=== PATIENT | female | born 1955 | race Caucasian/White ===

== ENCOUNTER 2018-07-25 11:04 | Emergency (ER) | payer OTHER | END 2018-07-25 14:27 | disposition home or self-care (01) | LOC: JER 11:04 ==

== ENCOUNTER 2020-08-23 05:21 | Day surgery (SDC) | payer OTHER ==
[2020-08-22 10:48] VITALS: BMI 29.0
[2020-08-23] MEDS ORDERED: PROMETHAZINE HCL 25 MG/1 ML VIAL IVPUSH PRN (19:31)
[2020-08-23] MEDS ORDERED: ONDANSETRON 4 MG/2 ML VIAL IVPUSH PRN (19:31)
[2020-08-23] MEDS ORDERED: LACTATED RINGERS SOLUTION 1,000 ML IV SCH (19:45)
[2020-08-23] MEDS ORDERED: LIDOCAINE HCL/PF 2% SDV 5ML VIAL ONE (20:14)
[2020-08-23] MEDS ORDERED: PROPOFOL 20 ML ONE ×2 (20:14)
[2020-08-23] MEDS ORDERED: ceFAZolin SODIUM 1 GM VIAL IVPB ONE (20:18)
[2020-08-23] MEDS ORDERED: SODIUM CHLORIDE 0.9% P/F 10 ML VIAL IJ ONE (20:26)
[2020-08-23] MEDS ORDERED: ceFAZolin SODIUM 1 GM VIAL ONE (20:26)
[2020-08-23] MEDS ORDERED: DEXAMETHASONE SOD PHOSPHATE 4 MG/1 ML VIAL ONE (20:27)
[2020-08-23] MEDS ORDERED: KETOROLAC TROMETHAMINE 30 MG/1 ML VIAL ONE (20:27)
[2020-08-23] MEDS ORDERED: ACETAMINOPHEN 1000 MG/100 ML VIAL (NON FORMULARY) IVPB PRN (22:37)
[2020-08-24] MEDS: MORPHINE SULFATE 2 MG/ML VIAL IVPUSH PRN ×2 (00:46→06:30)
[2020-08-24 06:28] VITALS: BP 121/69; PULSE 55; TEMP 98.5
== END 2020-08-24 11:10 | disposition home or self-care (01) ==
LOC: JASU-SURG 05:21 → JERBED 22:33 → J5S 22:33 → JERBED 23:30 → JASU-SURG 23:30
PROVIDERS: ATTEND Urology
PROC: 0T7D8DZ Dilation of Urethra with Intraluminal Device, Via Natural or Artificial Opening Endoscopic (ICD-10-PCS; principal; 2020-08-23 14:45)
PROC: 0TJB8ZZ Inspection of Bladder, Via Natural or Artificial Opening Endoscopic (ICD-10-PCS; 2020-08-23 14:45)
DX: N02.9 Recurrent and persistent hematuria with unspecified morphologic changes (principal); N81.10 Cystocele, unspecified; N95.2 Postmenopausal atrophic vaginitis
CPT/HCPCS: 94760; C9803; J0131; U0003; U0005

== ENCOUNTER 2023-02-20 10:24 | Emergency (ER) | payer OTHER ==
[2023-02-20 10:34] VITALS: BMI 28.9
[2023-02-20] MEDS ORDERED: ACETAMINOPHEN 1000 MG/100 ML BAG IVPB ONE (11:22)
[2023-02-20] MEDS ORDERED: predniSONE 20 MG TABLET (UD) PO ONE (11:22)
[2023-02-20] MEDS ORDERED: SODIUM CHLORIDE 1,000 ML IV STA (11:22)
[2023-02-20] MEDS ORDERED: ALBUTEROL SO4 2.5/IPRATROPIUM 0.5 INH SOL 3 ML VIAL.NEB. NEB ONE ×2 (11:23→11:49)
[2023-02-20] MEDS ORDERED: ACETAMINOPHEN INJECTION 100 ML IVPB ONE (11:49)
[2023-02-20] MEDS ORDERED: predniSONE 20 MG TABLET (UD) ONE ×2 (11:49→11:53)
[2023-02-20 11:56] LABS: BASO % 1.5 % (0-2.0); EOS % 4.9 % (0-4.5); HEMATOCRIT 38.1 % (32.4-45.2); HEMOGLOBIN 12.5 GM/dL (10.7-15.3); LYMPH % 19.2 % (8-40); MCH 28.6 pg (25.7-33.7); MCHC 32.9 g/dl (32.0-36.0); MEAN CELL VOLUME 86.9 fl (80-96); MEAN PLT VOLUME 8.2 fl (7.5-11.1); MONO % 12.2 % (3.8-10.2); NEUT % 62.2 % (42.8-82.8); PLATELET COUNT 183 10^3/uL (134-434); RBC 4.39 M/mm3 (3.60-5.2); RDW 13.7 % (11.6-15.6); WHITE BLOOD COUNT 4.5 K/mm3 (4.0-10.0)
[2023-02-20 12:15] LABS: POTASSIUM 4.2 mmol/L (3.5-5.1)
[2023-02-20 12:17] LABS: CALCIUM 9.2 mg/dL (8.5-10.1)
[2023-02-20 12:18] LABS: ALBUMIN 3.7 g/dl (3.4-5.0); BLOOD UREA NITROGEN 14.1 mg/dL (7-18)
[2023-02-20 12:21] LABS: CREATININE 0.9 mg/dL (0.55-1.3)
[2023-02-20 12:23] LABS: BILIRUBIN,TOTAL 0.3 mg/dL (0.2-1); TOT PROT 7.4 g/dl (6.4-8.2)
[2023-02-20 14:07] VITALS: BP 124/66; PULSE 84; RESP 16; TEMP 98.5
== END 2023-02-20 14:08 | disposition home or self-care (01) ==
LOC: JERFT 10:24
PROC: 3E033NZ Introduction of Analgesics, Hypnotics, Sedatives into Peripheral Vein, Percutaneous Approach (ICD-10-PCS; principal; 2023-02-20)
PROC: 3E0337Z Introduction of Electrolytic and Water Balance Substance into Peripheral Vein, Percutaneous Approach (ICD-10-PCS; 2023-02-20)
PROC: 3E0F7GC Introduction of Other Therapeutic Substance into Respiratory Tract, Via Natural or Artificial Opening (ICD-10-PCS; 2023-02-20)
DX: R05.9 Cough, unspecified (principal); R09.89 Other specified symptoms and signs involving the circulatory and respiratory systems; R09.81 Nasal congestion; M79.10 Myalgia, unspecified site; J06.9 Acute upper respiratory infection, unspecified; B97.4 Respiratory syncytial virus as the cause of diseases classified elsewhere; Z76.0 Encounter for issue of repeat prescription; Z20.822 Contact with and (suspected) exposure to COVID-19
CPT/HCPCS: 0241U-QW; 36415; 71046-TC-FY; 80053; 85025; 93005; 93010; 99285-25